=== PATIENT | male | born 1945 | race Hispanic/Latino ===

== ENCOUNTER 2017-04-19 14:28 | Outpatient (CLI) | payer MEDICARE ==
--- NOTE | 2017-04-19 15:24 | XRay Report ---
Bilateral knees: Bilateral knee pain. Standing views demonstrate good alignment bilaterally with good preservation of the joint spaces and articular margins. The bones are well-mineralized. No effusion and no swelling identified. Impression: Normal exam bilaterally.
== END 2017-04-19 14:29 | disposition home or self-care (01) ==
LOC: SPVIMAG 14:28
PROVIDERS: ATTEND Orthopaedic Surgery Sports Medicine
DX: M25.561 Pain in right knee (principal); M25.562 Pain in left knee

== ENCOUNTER 2017-05-23 09:26 | Outpatient (CLI) | payer MEDICARE ==
--- NOTE | 2017-05-23 14:52 | XRay Report ---
XRAY BILATERAL SHOULDER THREE VIEWS EACH: 05/23/17 09:26:00 CLINICAL: Bilateral shoulder pain. FINDINGS: Right: The humeral head is slightly inferior relative to the glenoid and there is a small Hill-Sachs lesion of humeral head. The glenoid is normal. The acromioclavicular joint is normal. Normal soft tissues. Left: No fracture or dislocation. Narrowing of the glenohumeral joint. However, no irregularity or other changes of the glenoid. The acromioclavicular joint is normal. Normal soft tissues. IMPRESSION: 1. Slight inferior subluxation of the right humerus and a small Hill-Sachs lesion suggesting a history of right shoulder dislocation.2. Mild left glenohumeral joint arthritis and otherwise negative left shoulder.
== END 2017-05-23 09:27 | disposition home or self-care (01) ==
LOC: SPVIMAG 09:26
PROVIDERS: ATTEND Orthopaedic Surgery Sports Medicine
DX: S43.002A Unspecified subluxation of left shoulder joint, initial encounter (principal); M19.012 Primary osteoarthritis, left shoulder; X58.XXXA Exposure to other specified factors, initial encounter; Y93.89 Activity, other specified; Y92.89 Other specified places as the place of occurrence of the external cause; Y99.8 Other external cause status